=== PATIENT | female | born 2000 | race Asian ===

== ENCOUNTER 2019-07-25 18:16 | Emergency (ER) | payer BC, SELFPAY ==
[2019-07-25 18:17] VITALS: BP 131/75; PULSE 72; RESP 16; TEMP 36.6; O2SAT 96; BMI 20.7
[2019-07-25 18:27] VITALS: RESP 16
[2019-07-25] MEDS: Lidocaine/Epi/Tetracaine 50 ML 1 APPLIC TOPICAL (18:29)
--- NOTE | 2019-07-25 18:43 | ED.VISSUMM ---
- ER Visit Summary Date of Service: 07/25/19 Chief Complaint: Left hand laceration History of Present Illness: The patient is a 18 F presenting with left hand laceration. This occurred just prior to arrival. Patient was swimming and collided with another swimmer. She is unsure if she cut her hand on the [place]ia marker or the other swimmer. Her last tetanus is unknown. No other injuries. Physical Examination: Vitals are stable. Patient is afebrile. Alert no acute distress. HEENT exam is unremarkable. Lungs are clear and equal bilaterally. Heart is regular rate and rhythm. Extremities 1.5 cm laceration left palmar surface. Tendon function normal. Neurovascularly intact distally. Skin is warm and dry. No focal neurologic deficit. Remainder of exam is unremarkable. Emergency Department Course and Treatment: Patient was given Tetanus IM. Wound was irrigated. Anesthetized with LET and local lidocaine. 2, 5-0 simple sutures were placed. Patient tolerated this well. Advised wound care instructions. Advised return ED for worsening complaints. Disposition: Discharge home Impression: Left hand laceration, laceration repair This note was generated with [employer] dictation software. It may contain incorrect words, spelling, and punctuation that were not noted in review of the chart prior to signing ED Disposition - Plan for ED Patient: Instructions: LACERATION, Hand Referrals: Care Physician,No Primary [Primary Care Provider] -
--- NOTE | 2019-07-25 18:46 | ED.DEP ---
ED Disposition - Plan for ED Patient: Instructions: LACERATION, Hand Referrals: Care Physician,No Primary [Primary Care Provider] -
[2019-07-25] MEDS: Diphth,Pertuss(Acell),Tet Vac 0.5 ML Vial IM (18:48)
[2019-07-25 19:31] VITALS: RESP 16
== END 2019-07-25 19:32 | disposition home or self-care (01) ==
LOC: ED 18:55
PROVIDERS: Emergency Provider Emergency Medicine
DX: S61.412A Laceration without foreign body of left hand, initial encounter (principal); W51.XXXA Accidental striking against or bumped into by another person, initial encounter; Y93.11 Activity, swimming; Y92.838 Other recreation area as the place of occurrence of the external cause; Y99.9 Unspecified external cause status; Z23 Encounter for immunization
CPT/HCPCS: 12001; 90715; 99283